=== PATIENT | female | born 1985 | race Caucasian/White ===

== ENCOUNTER → 2019-07-21 | Outpatient (CLI) | payer BC | LOC: COL.RAD 13:00 | DX: N92.6 Irregular menstruation, unspecified (principal) | CPT/HCPCS: Q9967 ==

== ENCOUNTER 2021-04-23 06:16 | Inpatient (IN) | payer BC ==
[2021-04-23] VITALS (47 sets, daily range): BP systolic 98–167; BP diastolic 57–103; PULSE 49–125; TEMP 97.7–99.9
[~2021-04-23] VITALS: Ht 167.6 cm; Wt 85.5 kg
[2021-04-23] MEDS ORDERED: PRENATAL (07:05)
[2021-04-23 08:05] LABS: BASO # 0.1 K/mm3 (0.0-0.2); BASO % 0.5 % (0.0-2.0); EOS # 0.1 K/mm3 (0.0-0.7); GRAN # 6.6 K/mm3 (1.4-6.5); GRAN % 66.5 % (42.2-75.2); HEMOGLOBIN 12.5 g/dl (12.5-16.0); LYMPH # 2.3 K/mm3 (1.2-3.4); LYMPH % 23.3 % (20.0-51.0); MEAN CELL VOLUME 92 fl (80.0-100.0); MEAN CORPUSCULAR HEMOGLOBIN 31 pg (27-31); MEAN CORPUSCULAR HGB CONC 34 g/dl (33.0-37.0); MEAN PLATELET VOLUME 13.8 fl (7.4-10.4); MONO # 0.8 K/mm3 (0.1-0.6); PLATELET COUNT 106 K/mm3 (130-400); RED BLOOD COUNT 4.01 M/mm3 (4.10-5.30); REDCELL DISTRIBUTION WIDTH-CV 12.5 % (11.5-14.5)
[2021-04-23 08:14] LABS: HEMATOCRIT 36.7 % (37.0-47.0)
--- NOTE | 2021-04-23 08:40 | NUR ---
AT BEDSIDE. SVE 2-/-2. AROM WITH CLEAR FLUID @ 0840. PT TOLERATED PROCEDURE WELL.
--- NOTE | 2021-04-23 10:10 | NUR ---
BILL LINCOLN AT BEDSIDE FOR EPIDURAL PLACEMENT. EDUCATES PATIENT ON PROCEDURE. CONSENTS SIGNED. PT SITTING ON EDGE OF BED. DIFFICULTY TRACING EFM/TOCO DUE TO MATERNAL POSITIONING. PT'S VITAL SIGNS STABLE THROUGHOUT PROCEDURE. TOLERATED PROCEDURE WELL.
--- NOTE | 2021-04-23 12:00 | NUR ---
AT BEDSIDE ROUNDING ON PT. SVE /-2 WITH BLOODY SHOW. IUPC PLACED AT THIS TIME. VERBAL ORDERS TO INCREASE PITOCIN PER PROTOCOL TO NEW MAX DOSE OF 30MU. PITOCIN TITRATED TO 22MU AT THIS TIME.
--- NOTE | 2021-04-23 16:00 | NUR ---
AT BEDSIDE. SVE /+1 PER . BLOODY SHOW NOTED. PT FEELING MORE PRESSURE WITH CONTRACTIONS AND REPORTS FEELING "SHAKY." ROTATED TO LEFT LATERAL POSITION WITH RIGHT LEG IN STIRRUP.
--- NOTE | 2021-04-23 16:40 | NUR ---
1640: PT C/O INCREASED PRESSURE WITH CONTRACTIONS AND "SHAKING" IN BILATERAL ARMS. SVE COMPLETE/+1 WITH BLOODY SHOW AT THIS TIME. 1645: PT COACHED ON PUSHING EFFORTS. GREAT MATERNAL EFFORT. NOTIFIED OF PT'S CURRENT STATUS, WILL CALL HER WHEN WE ARE READY FOR PHYSICIAN ASSISTANCE AT BEDSIDE. DIFFICULTY TRACING BLOOD PRESSURES DUE TO MATERNAL SHAKING IN BILATERAL ARMS THROUGHOUT THIS LABOR STAGE. 181: OF VIABLE FEMALE INFANT PER AT THIS TIME. INFANT PLACED ON MATERNAL ABDOMEN, CARE ASSUMED BY WILEY SEAMAN. CORD CLAMPED X2 AND CUT BY FOB. 1812: OF PLACENTA AT THIS TIME. PITOCIN INFUSING PER PROTOCOL. BEGINS REPAIR OF 2ND DEGREE PERINEAL LACERATION. FUNDUS BOGGY WITH MASSAGE. IM METHERGINE ADMINISTERED PER VERBAL ORDER. PT'S VITAL SIGNS STABLE AT THIS TIME. EBL 400CC FOR DELIVERY.
--- NOTE | 2021-04-23 18:40 | NUR ---
PT VOMITED 800ML EMESIS AND REPORTS FEELING LIGHTHEADED AND DIZZY. FUNDUS IS BOGGY BUT BECOMES FIRM WITH FUNDAL MASSAGE.
--- NOTE | 2021-04-23 18:50 | NUR ---
4MG IVP ZOFRAN GIVEN OVER 2 MIN FOR NAUSEA AND VOMITING.
--- NOTE | 2021-04-23 19:24 | NUR ---
MOTHER RESTING IN BED, SITTING UPRIGHT, NO SIGNS OF DISTRESS. MOTHER DENIES FURTHER NEEDS AT THIS TIME. CALL LIGHT WITHIN REACH
--- NOTE | 2021-04-23 19:30 | NUR ---
MOTHER SITTING UPRIGHT IN BED NURSING BABE, NO SIGNS OF DISTRESS. MOTHER DENIES FURTHER NEEDS AT THIS TIME. CALL LIGHT WITHIN REACH
--- NOTE | 2021-04-23 20:00 | NUR ---
MOTHER SITTING UPRIGHT IN BED NURSING BABE, NO SIGNS OF DISTRESS. CALL LIGHT WITHIN REACH, MOTHER DENIES FURTHER NEEDS
--- NOTE | 2021-04-23 20:30 | NUR ---
PT AMBULATED TO BATHROOM WITH STEADY GAIT. PERICARE PROVIDED AND PADS CHANGED. PT UNABLE TO VOID AT THIS TIME AND STATES SHE DOES NOT FEEL THE URGE TO VOID.
--- NOTE | 2021-04-23 20:40 | NUR ---
PATIENT TRANSFERRED TO ROOM 208 IN WHEELCHAIR AT THIS TIME. RN DEMONSTRATED CALL LIGHT SYSTEM AND MOTHER VERBALIZED AN UNDERSTANDING. MOTHER DENIES FURTHER NEEDS AT THIS TIME. CALL LIGHT WITHIN REACH
[2021-04-24 00:45] VITALS: BP 126/81; PULSE 67; TEMP 98.7
[2021-04-24 04:55] VITALS: BP 125/82; PULSE 52; TEMP 98.2
[2021-04-24 07:14] VITALS: BP 138/88; PULSE 56; TEMP 98.1
--- NOTE | 2021-04-24 10:13 | NUR ---
Initial visit; Parents thanked Cafe Site Attendant for offering congratulations and God's blessings for the of their daughter. Cafe Site Attendant thanked family for choosing [place].
[2021-04-24 15:48] VITALS: BP 117/77; PULSE 74; TEMP 97.9
--- NOTE | 2021-04-24 18:40 | NUR ---
REPORT RECEIVED. PLAN OF CARE REVIEWED.
[2021-04-24 19:05] VITALS: BP 110/79; PULSE 78; TEMP 98
[2021-04-25 08:00] VITALS: BP 113/72; PULSE 72; TEMP 97.6
[2021-04-25] MEDS ORDERED: MOTRIN 800800 MG/TAB PO (08:36)
[2021-04-25] MEDS ORDERED: PERCOCET 325 MG1 TA2 PO (08:36)
[2021-04-25] MEDS ORDERED: ROXICODONE 55 MG/TAB PO (13:55)
== END 2021-04-25 14:30 | disposition home or self-care (01) | DRG 807 ==
LOC: LDR 06:16 → OB 06:16
PROVIDERS: ADMIT Obstetrics & Gynecology
PROC: 10E0XZZ Delivery of Products of Conception, External Approach (ICD-10-PCS; principal; 2021-04-23)
PROC: 0KQM0ZZ Repair Perineum Muscle, Open Approach (ICD-10-PCS; 2021-04-23)
PROC: 10907ZC Drainage of Amniotic Fluid, Therapeutic from Products of Conception, Via Natural or Artificial Opening (ICD-10-PCS; 2021-04-23)
PROC: 3E033VJ Introduction of Other Hormone into Peripheral Vein, Percutaneous Approach (ICD-10-PCS; 2021-04-23)
DX: O99.344 Other mental disorders complicating childbirth (principal); Z37.0 Single live birth; F41.9 Anxiety disorder, unspecified; O75.89 Other specified complications of labor and delivery; G43.909 Migraine, unspecified, not intractable, without status migrainosus; G89.29 Other chronic pain; M54.9 Dorsalgia, unspecified; O35.8XX0 Maternal care for other (suspected) fetal abnormality and damage, not applicable or unspecified; O70.1 Second degree perineal laceration during delivery; O62.2 Other uterine inertia; Z3A.39 39 weeks gestation of pregnancy
CPT/HCPCS: J2210; J2405; J2590; J2795; J7120